=== PATIENT | male | born 1960 | race Caucasian/White ===

== ENCOUNTER 2019-04-22 11:01 | Inpatient (IN) | payer BC ==
[2019-04-22] MEDS ORDERED: Fentanyl 100 MCG/2 ML VIAL ONE (11:09)
[2019-04-22] MEDS ORDERED: Adacel (T-DAP) 0.5 ML SYRINGE ONE (11:10)
[2019-04-22] MEDS ORDERED: Ondansetron PF 4 MG/2 ML Vial ONE (11:10)
[2019-04-22 11:26] LABS: #Basophils 0.1 thou/uL (0.0-0.2); #Eosinphils 0.2 thou/uL (0.0-0.7); #Lymphocytes 3.2 thou/uL (1.20-3.40); #Monocytes 0.7 thou/uL (0.11-0.59); #Neutrophils 6.7 thou/uL (1.40-6.50); %Basophils 0.5 % (0.0-1.0); %Eosinophils 1.4 % (0.0-10.0); %Lymphocytes 29.7 % (21.0-51.0); %Monocytes 6.6 % (0.0-10.0); %Neutrophils 61.8 % (42.0-75.0); Hemoglobin 15.8 g/dL (14.0-18.0); Mean Corpuscular HGB CONC 33.5 g/dL (32.0-36.0); Mean Corpuscular Hemoglobin 31.1 pg (27.0-31.0); Mean Corpuscular Volume 92.8 fL (78.0-98.0); Mean Platelet Volume 7.8 fL (7.4-10.4); Platelet Count 238 thou/uL (130-400); Red Blood Cell (RBC) Count 5.08 mill/uL (4.70-6.10); White Blood Cell (WBC) Count 10.8 thou/uL (4.8-10.8)
[2019-04-22] MEDS ORDERED: ISOVUE-370 76%-LOCM 1 ML ONE (11:30)
[2019-04-22 11:42] LABS: ALT (SGPT) 15 U/L (8-55); AST (SGOT) 20 U/L (5-34); Albumin 4.4 g/dL (3.5-5.0); Alkaline Phosphatase 70 U/L (40-150); Anion Gap 18 mmol/L (10-20); BUN (Urea Nitrogen) 18 mg/dL (8.4-25.7); Bilirubin, Total 0.6 mg/dL (0.2-1.2); Calc. Creatinine Clearance 0 mL/min (70-130); Calcium 9.7 mg/dL (7.8-10.44); Carbon Dioxide 20 mmol/L (22-29); Chloride 105 mmol/L (98-107); Estimated GFR-MDRD 74; Globulin 3.3 g/dL (2.4-3.5); Glucose 150 mg/dL (70-105); Potassium 3.7 mmol/L (3.5-5.1); Protein, Total 7.7 g/dL (6.0-8.3); Sodium 139 mmol/L (136-145)
[2019-04-22] MEDS ORDERED: Morphine 4 MG/ML VIAL ONE (11:47)
[2019-04-22] MEDS ORDERED: Ketorolac Tromethamine 30 MG/ML VIAL ONE (12:19)
[2019-04-22] MEDS ORDERED: Fluorescein Opthalmic Strip ONE (12:27)
[2019-04-22] MEDS ORDERED: Proparacaine 0.5% Opth 15 ML BOT ONE (12:27)
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
[2019-04-22 12:45] LABS: INR-International Normal Ratio 1.1; Prothrombin Time 13.8 SEC (12.0-14.7)
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
[2019-04-22] MEDS ORDERED: Sodium Chloride 0.9% 1,000 ML IV SCH (14:54)
[2019-04-22] MEDS ORDERED: traMADol HCl 50 MG TAB PO PRN (14:54)
[2019-04-22] MEDS ORDERED: Dextrose 50% Abboject 50 ML SYRINGE SLOW IVP PRN (14:54)
[2019-04-22] MEDS ORDERED: Ondansetron ODT 4 MG TAB PO PRN (14:54)
[2019-04-22] MEDS ORDERED: Ondansetron PF 4 MG/2 ML Vial IVP PRN (14:54)
[2019-04-22] MEDS ORDERED: Dextrose 5% in Water 1,000 ML IV PRN (14:54)
[2019-04-22] MEDS ORDERED: traMADol HCl 50 MG TAB PO SCH (14:54)
[2019-04-22] MEDS ORDERED: hydrALAZINE 20 MG/ML VIAL SLOW IVP PRN (14:54)
[2019-04-22] MEDS: Acetaminophen 500 MG TAB PO SCH ×2 (18:09→23:41)
[2019-04-22] MEDS: Cyclobenzaprine 10 MG TAB PO PRN (18:09)
[2019-04-22] MEDS: Ibuprofen 800 MG TAB PO SCH (21:40)
[2019-04-22] MEDS: Oxazepam 10 MG CAP PO SCH (21:40)
[2019-04-22] MEDS: Famotidine 20 MG TAB PO SCH (21:40)
[2019-04-22] MEDS: Gabapentin 300 MG CAP PO SCH (21:40)
[2019-04-23 05:17] LABS: #Eosinphils 0.1 thou/uL (0.0-0.7); #Lymphocytes 1.6 thou/uL (1.20-3.40); #Monocytes 0.6 thou/uL (0.11-0.59); #Neutrophils 4.3 thou/uL (1.40-6.50); %Basophils 0.5 % (0.0-1.0); %Eosinophils 2.1 % (0.0-10.0); %Lymphocytes 24.4 % (21.0-51.0); %Monocytes 8.6 % (0.0-10.0); %Neutrophils 64.4 % (42.0-75.0); Hemoglobin 12.5 g/dL (14.0-18.0); Mean Corpuscular Hemoglobin 30.3 pg (27.0-31.0); Mean Corpuscular Volume 94.7 fL (78.0-98.0); Mean Platelet Volume 7.6 fL (7.4-10.4); Platelet Count 183 thou/uL (130-400); RBC Distribution Width 12.2 % (11.5-14.5); Red Blood Cell (RBC) Count 4.13 mill/uL (4.70-6.10); White Blood Cell (WBC) Count 6.6 thou/uL (4.8-10.8)
[2019-04-23 05:34] LABS: Anion Gap 9 mmol/L (10-20); BUN (Urea Nitrogen) 15 mg/dL (8.4-25.7); Calc. Creatinine Clearance 0 mL/min (70-130); Calcium 8.6 mg/dL (7.8-10.44); Carbon Dioxide 24 mmol/L (22-29); Chloride 107 mmol/L (98-107); Estimated GFR-MDRD Greater than 90; Glucose 95 mg/dL (70-105); Potassium 4.1 mmol/L (3.5-5.1); Sodium 136 mmol/L (136-145)
[2019-04-23] MEDS: Ibuprofen 800 MG TAB PO SCH (05:34)
[2019-04-23] MEDS: Cyclobenzaprine 10 MG TAB PO PRN (05:35)
[2019-04-23] MEDS: Acetaminophen 500 MG TAB PO SCH (05:35)
[2019-04-23] MEDS: Oxazepam 10 MG CAP PO SCH (05:35)
--- NOTE | 2019-04-23 07:53 | RAD ---
PORTABLE CHEST: HISTORY: Followup of pneumothorax. COMPARISON: CT examination done yesterday. FINDINGS: It is difficult to definitely appreciate any pneumothorax on this examination. There are atelectatic changes in the left base. IMPRESSION: No signs for pneumothorax. POS: [facility]
[2019-04-23 08:11] VITALS: BP 123/80; TEMP 97.6
[2019-04-23] MEDS: Famotidine 20 MG TAB PO SCH (08:16)
[2019-04-23] MEDS: Gabapentin 300 MG CAP PO SCH (08:16)
[2019-04-23] MEDS ORDERED: Polyethylene Glycol 3350 17 GM Packet PO SCH (09:00)
[2019-04-23] MEDS ORDERED: Thiamine 100 MG TAB PO SCH (09:00)
[2019-04-23] MEDS ORDERED: Senokot S 8.6-50 MG TAB PO SCH (09:00)
[2019-04-23] MEDS ORDERED: Folic Acid 1 MG TAB PO SCH (09:00)
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
--- NOTE | 2019-04-24 13:24 | EKG ---
Test Reason : Blood Pressure : / mmHG Vent. Rate : 104 BPM Atrial Rate : 104 BPM P-R Int : 126 ms QRS Dur : 078 ms QT Int : 336 ms P-R-T Axes : 044 042 053 degrees QTc Int : 441 ms Sinus tachycardia Low voltage QRS Borderline ECG Confirmed by ARSH ESPINOZA M.D. ([id number]), sound editor LEONA SALOMON ([id number]) on 04/24/2019 1:23:53 PM Referred By: Confirmed By:ARSH ESPINOZA M.D.
== END 2019-04-23 11:40 | disposition home or self-care (01) | DRG 200 ==
LOC: ERS 11:01 → SURG A 14:33
PROVIDERS: ADMIT Surgery; ATTEND Surgery
DX: S27.0XXA Traumatic pneumothorax, initial encounter (principal); S22.42XA Multiple fractures of ribs, left side, initial encounter for closed fracture; S27.321A Contusion of lung, unilateral, initial encounter; E78.5 Hyperlipidemia, unspecified; I10 Essential (primary) hypertension; F17.210 Nicotine dependence, cigarettes, uncomplicated; S01.01XA Laceration without foreign body of scalp, initial encounter; S06.0X0A Concussion without loss of consciousness, initial encounter; F10.20 Alcohol dependence, uncomplicated; V69.09XA Driver of heavy transport vehicle injured in collision with other motor vehicles in nontraffic accident, initial encounter
CPT/HCPCS: 36415; 70450; 71045; 71260; 72125; 72170; 74177; 80048; 80053; 84484; 85025; 85610; 86850; 86900; 86901; 90471; 90715; 93005; 94640; 96361; 96374; 96375; G0390; J1885; J2270; J2405; J3010; J7620

== ENCOUNTER 2019-05-03 09:42 | Outpatient (CLI) | payer BC ==
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
== END 2019-05-03 09:43 | disposition home or self-care (01) ==
LOC: BICRAD 09:42
PROVIDERS: ATTEND Physician Assistant
DX: S22.42XD Multiple fractures of ribs, left side, subsequent encounter for fracture with routine healing (principal)
CPT/HCPCS: 71046